=== PATIENT | female | born 1995 | race Caucasian/White ===

== ENCOUNTER 2023-03-29 23:37 | Inpatient (IN) | payer BC ==
[2023-03-30] MEDS ORDERED: Sodium Chloride 0.9% 10 ML Syringe FLUSH PRN ×2 (00:19→08:05)
[2023-03-30] MEDS ORDERED: Ondansetron 4 MG/2 ML SDV IVPUSH PRN (00:19)
[2023-03-30] MEDS ORDERED: Lidocaine 1% 30 ML SDV INJECT ONE (00:19)
[2023-03-30] MEDS ORDERED: Carboprost Tromethamine 250 MCG/1 ML Amp IM PRN ×2 (00:19→08:05)
[2023-03-30] MEDS ORDERED: Lactated Ringers 1,000 ML IV ONE (00:19)
[2023-03-30] MEDS ORDERED: Acetaminophen 325 MG Tab PO PRN ×2 (00:19→08:05)
[2023-03-30] MEDS ORDERED: Misoprostol 400 MCG (4 X 100 MCG TAB) RECTAL PRN ×2 (00:19→08:05)
[2023-03-30] MEDS ORDERED: Tranexamic Acid 1,000 MG in Sodium Chloride 0.9% 100 ML IV PRN ×2 (00:19→08:05)
[2023-03-30] MEDS ORDERED: Methylergonovine 0.2 MG/1 ML Amp IM PRN (00:19)
[2023-03-30] MEDS ORDERED: ePHEDrine 50 MG/ML SDV IVPUSH PRN ×2 (00:20→02:04)
[2023-03-30] MEDS ORDERED: Phenylephrine HCl In 0.9% NaCl 1 MG/10 ML Syringe IVPUSH PRN ×2 (00:20→02:04)
[2023-03-30] MEDS ORDERED: Oxytocin/Normal Saline 30 UNIT/500 ML BAG IV SCH (00:30)
[2023-03-30] MEDS ORDERED: Ropivacaine 200 MG in Premix Bag 1 BAG EPIDUR SCH ×2 (00:30→02:15)
[2023-03-30] MEDS ORDERED: Lactated Ringers 1,000 ML IV SCH (00:30)
[2023-03-30 00:42] LABS: HEMOGLOBIN 13.6 g/dL (12.0-16.0); MEAN CORPUSCULAR HEMOGLOBIN 30.4 pg (27.0-34.0); MEAN CORPUSCULAR VOLUME 89.3 fL (80-100); RED BLOOD CELL COUNT 4.48 10^6/uL (4.2-5.4); WHITE BLOOD CELL COUNT,WBC 15.1 10^3/uL (5.0-10.0)
[2023-03-30] MEDS ORDERED: Bupivacaine 0.25% 10 ML SDV ONE (01:15)
[2023-03-30] MEDS ORDERED: fentaNYL 100 MCG/2 ML SDV ONE (01:15)
[2023-03-30] MEDS ORDERED: Bupivacaine 0.25% 10 ML SDV EPIDUR ONE (01:22)
[2023-03-30] MEDS ORDERED: fentaNYL 100 MCG/2 ML SDV EPIDUR ONE (01:22)
[2023-03-30] MEDS ORDERED: Oxytocin 10 Units/1 ML SDV IM PRN (08:05)
[2023-03-30] MEDS ORDERED: Benzocaine/Menthol 20%-0.5% Spray 78 GM Cannister TOP PRN (08:05)
[2023-03-30] MEDS ORDERED: Simethicone 80 MG Tab.Chew PO PRN (08:05)
[2023-03-30] MEDS ORDERED: Witch Hazel Medicated Pads 100/Jar TOP PRN (08:05)
[2023-03-30] MEDS: Prenatal Multivitamin with Calcium/Folic Acid/Iron Tab PO SCH (11:19)
[2023-03-30] MEDS: Ibuprofen 800 MG Tab PO PRN ×2 (11:56→20:34)
[2023-03-30] MEDS: Docusate Sodium 100 MG Cap PO PRN (20:34)
[2023-03-31 06:46] LABS: HEMATOCRIT 38.3 % (37.0-47.0); HEMOGLOBIN 12.7 g/dL (12.0-16.0); MEAN CORPUSCULAR HEMOGLOBIN 30.3 pg (27.0-34.0); MEAN CORPUSCULAR HGB CONC 33.2 g/dL (33.0-35.0); MEAN CORPUSCULAR VOLUME 91.4 fL (80-100); RED BLOOD CELL COUNT 4.19 10^6/uL (4.2-5.4); WHITE BLOOD CELL COUNT,WBC 15.5 10^3/uL (5.0-10.0)
[2023-03-31] MEDS: Ibuprofen 800 MG Tab PO PRN (09:32)
[2023-03-31] MEDS: Prenatal Multivitamin with Calcium/Folic Acid/Iron Tab PO SCH (09:32)
[2023-03-31] MEDS: Docusate Sodium 100 MG Cap PO PRN (09:32)
== END 2023-03-31 12:00 | disposition home or self-care (01) | DRG 560 ==
LOC: DL.OBCHECK 23:37 → OBSVTOIN 03-30 00:19 → UNDOADMOB 03-30 00:19 → DL.OB 03-30 00:19 → INTOOBSV 03-30 00:19 → UNDOADMOB 03-30 00:21 → DL.OB 03-30 00:21 → OBSVTOIN 03-30 17:13 → UNDODISIN 03-31 12:00
PROVIDERS: ADMIT Family Medicine; ATTEND Family Medicine
PROC: 10E0XZZ Delivery of Products of Conception, External Approach (ICD-10-PCS; principal; 2023-03-30)
PROC: 0UQMXZZ Repair Vulva, External Approach (ICD-10-PCS; 2023-03-30)
PROC: 3E0R3BZ Introduction of Anesthetic Agent into Spinal Canal, Percutaneous Approach (ICD-10-PCS; 2023-03-30)
PROC: 00HU33Z Insertion of Infusion Device into Spinal Canal, Percutaneous Approach (ICD-10-PCS; 2023-03-30)
DX: O42.02 Full-term premature rupture of membranes, onset of labor within 24 hours of rupture (principal); Z37.0 Single live birth; Z3A.37 37 weeks gestation of pregnancy; O70.0 First degree perineal laceration during delivery
CPT/HCPCS: 01967; 36415; 51702; 59409; 85027; A9270-GY; J2405; J2590; J2795; J3010; J3490; J7120